=== PATIENT | female | born 1975 | race Caucasian/White ===

== ENCOUNTER → 2016-04-18 | Day surgery (SDC) | payer OTHER ==
[~2016-04-18] VITALS: Ht 175.3 cm; Wt 129.3 kg
[~2016-04-18] MED LIST: AMLODIPINE BESYL5 M1 PO; ATORVASTATIN CA20 M1 PO; CYMBALTA60 M1 PO; IBUPROFEN800 M1 PO; MELATONIN3 M4 PO; METOPROLOL TART25 M1 PO; PERCOCET 10-321 EACH PO; PERCOCET 5-3251 EACH PO; STOOL SOFTENER100 M2 PO; ULTRAM50 M1 PO
[2016-04-18 07:43] LABS: ABSOLUTE BASOPHIL COUNT 0.1 /CUMM (0.0-0.2); ABSOLUTE EOSINOPHIL COUNT 0.5 /CUMM (0.0-0.7); ABSOLUTE GRANULOCYTE CT 4.9 /CUMM (1.4-6.5); ABSOLUTE LYMPH COUNT 2.4 /CUMM (1.2-3.4); ABSOLUTE MONOCYTE COUNT 0.4 /CUMM (0.10-0.60); EOSINOPHIL % 5.6 % (0-5); GRANULOCYTE % 59.1 % (42.2-75.2); HEMATOCRIT 40.2 % (37-47); MEAN CORPUSCULAR HGB 27.9 PG (27.0-31.0); MEAN CORPUSCULAR HGB CONC 32.9 G/DL (33.0-37.0); MEAN CORPUSCULAR VOLUME 84.8 FL (81.0-99.0); MEAN PLATELET VOLUME 9.4 FL (7.4-10.4); PLATELET COUNT 252 /CUMM (130-400); RBC DISTRIBUTION WIDTH 14.1 % (11.5-14.5); RED BLOOD CELL CT 4.74 /CUMM (4.20-5.40); WHITE BLOOD CELL COUNT 8.2 /CUMM (4.8-10.8)
[2016-04-18 08:17] LABS: PT 11.2 SEC (9.4-12.5); PTT 33 SEC (25-37)
--- NOTE | 2016-04-18 11:13 | Operative Report ---
Operative/Inv Procedure Report Surgery Date: 04/18/16 Name of Procedure: Diagnostic laparoscopy peritoneal washings Pre-Operative Diagnosis: Pelvic pain fibroids Post-Operative Diagnosis: Same and endometriosis Estimated Blood Loss: less than 50ml Surgeon/Student Financial Aid Manager: KEVEN GORDON,EBONY Chavez Anesthesia: general endotracheal tube Operative/Procedure Note Note: Patient was taken the operating room placed supine position after adequate anesthesia patient placed in dorsolithotomy position vagina from dorsal fashion bladder was catheterized examination under anesthesia performed at this point a estrada speculum was placed into the vagina CO2 tenaculum placed on the Intralipid cervix gentle downward traction Munoz cannula was left in place. At this point on the surgeon regowned and gloved at the level the umbilicus stab incision was made to allow for the entry of Veress needle there was a negative drop test the abdomen was insufflated possibly 5 L of CO2 to liver edge dullness at which point the Veress needle was removed a 10 mm trocar was inserted atraumatically at the umbilicus the sheath remained placed through that sheath a laparoscope was placed under direct visualization a 5 mm trocar was placed 2 finger breadths of symptoms pubis in the midline through that a peanut was placed the patient was placed in Trendelenburg pictures were taken peritoneal on lining above the liver was noted to have endometriosis the ovaries were normal bilaterally the uterus is 16 weeks multiple fibroids peritoneal washings were obtained maximal CO2 was removed on patient tolerated this well on since removed from the abdomen the incision the umbilicus was oversewn using 0 for the fascia and 304 the skin incisions of both incisions Marcaine was injected underneath the skin at the end the case sterile dressings were applied the Munoz cannula was moved from the vagina or advancements removed from the vagina Del Rio was removed the patient was returned spine position she was awakened from anesthesia extubated and transported recovery room awake alert with counts correct
== END ==
LOC: STS 02:14
PROVIDERS: Specialist
DX: R10.2 Pelvic and perineal pain (principal); N80.9 Endometriosis, unspecified; D25.9 Leiomyoma of uterus, unspecified; I10 Essential (primary) hypertension; E78.5 Hyperlipidemia, unspecified
CPT/HCPCS: 36415; 81001; 88305; J0131

== ENCOUNTER 2016-05-23 04:29 | Inpatient (IN) | payer OTHER ==
[~2016-05-23] VITALS: Ht 175.3 cm; Wt 127.0 kg
[~2016-05-23 04:29] MED LIST changes: -IBUPROFEN800 M1 PO; -PERCOCET 5-3251 EACH PO
--- NOTE | 2016-05-23 08:53 | Operative Report ---
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 She was placed in the supine position on the operating table. A timeout was executed appropriately with the patient awake. Gel anesthesia was induced via an endotracheal tube. She was placed in the dorsal lithotomy position and prepped and draped in usual fashion for cystoscopy. The 22 Upper Sor[place] cystoscope sheath was placed into the bladder and urine collected for culture. Cystoscopy was performed and the bladder appeared essentially normal other than some mild inflammation of the bladder mucosa. The right and left ureteral orifices were normal in location and appearance. An open-ended catheter was advanced through the cystoscope into the left ureter up to the level of the left kidney. A similar catheter was advanced into the right ureter and up the level of the right kidney. Cystoscope was removed leaving both ureteral catheters in place. A Del Rio catheter was then placed in the ureteral stents fixed to the Del Rio catheter with tape and placed to separate drainage bags. The patient tolerated this portion of the procedure well and was to undergo hysterectomy by Dr. Weeks.
--- NOTE | 2016-05-23 11:33 | Operative Report ---
Operative/Inv Procedure Report Surgery Date: 05/23/16 Name of Procedure: Total abdominal hysterectomy bilateral salpingo-oophorectomy Pre-Operative Diagnosis: Pelvic pain Post-Operative Diagnosis: Same and adenomyosis of the uterus Estimated Blood Loss: 500 Surgeon/Ergonomics Engineer: KEVEN GORDON,EBONY Chavez and Dr. Marty Sawant Anesthesia: general endotracheal tube Operative/Procedure Note Note: Procedure note patient was taken the operating room placed prone position after adequate induction general anesthesia via endotracheal tube on patient was placed in dorsolithotomy Dr. Reno perform cystoscopy and placed stents he will dictate that part of the case at this point patient was returned spine position. The abdomen was prepped and draped so fashion 2 fingerbreadths of symptoms pubis skin was cut was carried down to rectus fascia which was cut in curvilinear fashion either direction using curved males the peritoneal cavity was entered high into the abdomen at this point Simon, was placed in usual fashion with lap pads with rings at this point the round ligament on the right was identified using [id number] and the round ligament on the left identified using and a [id number] of 0 the bladder flap was developed sharply and bluntly sequentially cervical branches uterine artery clamped and cut to level of the external os using 0 on the right infundibular pelvic artery was clamped on and the right ovary and tube were removed the on left endopelvic artery was clamped and the left ovary and tube were removed. Surgical cuff was oversewn running locking suture of interrupted [id number] hemostasis was apparent on the abdomen was area close amounts once until clear on the Marlen was applied to cervical cuff the lap pads were removed intact Simon O'Brando was removed intact peritoneum was reapproximated 0 the fascia was approximated with 2 continuous sutures of running lock of number 1 suture. Substance tissue was Bovie coagulated and skin was approximated david at the end the case counts correct urine was clear the stents removed intact the vagina was irrigated and found to be hemostatic patient was extubated and transferred recovery room awake and alert
[2016-05-23 13:28] VITALS: BP 120/80
[2016-05-23 13:31] VITALS: BP 120/80
[2016-05-23 15:18] VITALS: BP 120/80
--- NOTE | 2016-05-23 15:47 | NUR ---
LATE ENTRY: PATIENT CAME UP FROM THE PACU. AT THE BEDSIDE. PT A/OX3. C/O OF 12/22 ABD PAIN (SHARP IN NATURE). PER NATY WILSON GIVEN. PATIENT VERBALIZES COMFORT AT THIS TIME. ORIENTED TO CALL PATTEN, STAFF. GIVEN BIOLOGICAL SCIENCES PROFESSOR FORMS.
[2016-05-23 16:39] VITALS: BP 120/80
[2016-05-23 16:59] VITALS: BP 132/82
[2016-05-23 22:44] VITALS: BP 124/80
[2016-05-24 06:15] VITALS: BP 122/80
[2016-05-24 08:00] VITALS: BP 120/76
[2016-05-24 08:08] LABS: ABSOLUTE BASOPHIL COUNT 0 /CUMM (0.0-0.2); ABSOLUTE EOSINOPHIL COUNT 0 /CUMM (0.0-0.7); ABSOLUTE GRANULOCYTE CT 7.8 /CUMM (1.4-6.5); ABSOLUTE LYMPH COUNT 2.4 /CUMM (1.2-3.4); ABSOLUTE MONOCYTE COUNT 0.9 /CUMM (0.10-0.60); BASOPHIL % 0.3 % (0.0-2.0); EOSINOPHIL % 0 % (0-5); GRANULOCYTE % 70.3 % (42.2-75.2); HEMATOCRIT 37.5 % (37-47); MEAN CORPUSCULAR HGB 28.5 PG (27.0-31.0); MEAN CORPUSCULAR HGB CONC 33.1 G/DL (33.0-37.0); MEAN CORPUSCULAR VOLUME 85.9 FL (81.0-99.0); MEAN PLATELET VOLUME 10.5 FL (7.4-10.4); PLATELET COUNT 253 /CUMM (130-400); RBC DISTRIBUTION WIDTH 14.5 % (11.5-14.5); RED BLOOD CELL CT 4.37 /CUMM (4.20-5.40)
[2016-05-24 09:13] LABS: WHITE BLOOD CELL COUNT 11.2 /CUMM (4.8-10.8)
[2016-05-24 10:00] VITALS: BP 120/78; BP 130/76
--- NOTE | 2016-05-24 13:05 | PN- Post Delivery/GYN ---
Subjective Subjective: +FLATUS Objective Last 24 Hrs of Vital Signs/I&O Vital Signs Date Time Temp Pulse Resp B/P Pulse O2 O2 Flow FiO2 Ox Delivery Rate 05/24 1000 98.7 79 18 120/78 05/24 0800 98.2 82 18 120/76 05/24 0615 98.7 73 19 122/80 96 Nasal Cannula 05/24 0000 96 Nasal 2.0L Cannula 05/23 2244 98.3 82 18 124/80 96 Nasal Cannula 05/23 1659 98.1 75 18 132/82 95 Nasal 2.0L Cannula 05/23 1639 98.2 80 18 120/80 05/23 1518 98.2 80 18 120/80 95 05/23 1331 98.1 71 18 120/80 94 Nasal 2.0L Cannula 05/23 1328 98.1 71 20 120/80 05/23 1311 93 Nasal 2.0L Cannula Intake & Output 05/24 1600 05/24 0800 05/24 0000 Intake Total 1000 375 Output Total 800 1350 Balance 200 -975 Intake, IV 1000 375 Output, Urine 800 1350 Physical Exam: PLEASASNT WF IN NAD ABD SOFT NT INCISION CDI EXT -EDEMA -HOMANS Assessment/Plan Assessment/Plan ASSESS S/PTAH BSO PLAN OOB ADVANCE DIET
[2016-05-24 13:40] VITALS: BP 138/80
[2016-05-24 14:00] VITALS: BP 138/78
[2016-05-24 21:45] VITALS: BP 120/78
[2016-05-25 06:00] VITALS: BP 122/64
[2016-05-25 10:57] VITALS: BP 122/64
[2016-05-25] MEDS ORDERED: IBUPROFEN800 M1 PO (11:50)
[2016-05-25] MEDS ORDERED: PERCOCET 5-3251 EACH PO (12:19)
--- NOTE | 2016-06-20 11:36 | Surgical Discharge Summary ---
Visit Information Visit Dates Admission Date: 05/23/16 Discharge Date: 05/25/16 History of Present Illness Chief Complaint: 41-year-old 2 para 2002 assessments. 2 years ago patient underwent a cryoablation of heavy bleeding over the last 6 months patient has had severe pain prevents her from working requiring narcotics patient has had a laparoscopy that demonstrated a fibroid uterus on she's had options for the treatment is fibroid uterus i.e. 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 Home Who Do You Live With? Spouse What is Your Primary Language? Sinhala Review of Systems: Negative review of systems as stated in the [facility] Hospital Course Course Attending Physician: EBONY BACA MD Primary Care Physician: JOSUE LITTLE DO Hospital Course: Was admitted to undergo total abdominal hysterectomy bilateral salpingo- oophorectomy and she did well first postoperative day she tolerated a general diet on the second postoperative day she was discharged home with following physical exam she's a pleasant white female HEENT anicteric lungs clear heart S1 and S2 abdomen soft incision clean dry and intact 70s negative edema negative Homans Allergies: Coded Allergies: No Known Allergies (04/11/16) Disposition Summary Disposition Principal Diagnosis: Status post TATIANNA/BSO placement of stents Additional Diagnosis: Anemia Discharge Disposition: home or self care Discharge Instructions General Discharge Information Code Status: Full Code Patient's Diet: regular Patient's Activity: No driving for 2 weeks no heavy lifting for 2 weeks nothing in the vagina for 6 weeks Follow-Up Instructions/Appts: My office 1 week for removal of david Medications at Discharge Discharge Medications: Stop taking the following medications: Tramadol HCl (Ultram) 50 MG TABLET ORAL as needed for PAIN Oxycodone HCl/Acetaminophen (Percocet 10-325 MG Tablet) 10 MG-325 MG TABLET ORAL EVERY 4 HOURS NEEDED as needed for PAIN Continue taking these medications: Duloxetine HCl (Cymbalta) 60 MG CAPSULE.DR 1 Capsule ORAL Every night Comments: Last Taken: 05/25/16 Time: 10AM Amlodipine Besylate (Amlodipine Besylate) 5 MG TABLET 1 Tablet ORAL DAILY Comments: Last Taken: 05/25/16 Time: 10AM Atorvastatin Calcium (Atorvastatin Calcium) 20 MG TABLET 1 Tablet ORAL DAILY Comments: NOT GIVEN IN HOSPITAL Melatonin (Melatonin) 3 MG TABLET 1 Tablet ORAL Every night Comments: DOCUMENTED PER CMR DURING PRE-SX INTERVIEW Metoprolol Tartrate (Metoprolol Tartrate) 25 MG TABLET 1 Tablet ORAL TWICE DAILY as needed for PALPATATIONS Comments: NOT GIVEN IN HOSPITAL Docusate Sodium (Stool Softener) 100 MG TABLET 3 Tablet ORAL DAILY Comments: Last Taken: 05/25/16 Time: 10AM Start taking the following new medications: Ibuprofen (Ibuprofen) 800 MG TABLET 800 Milligram ORAL EVERY SIX HOURS NEEDED as needed for PAIN Qty = 60 No Refills Comments: NOT GIVEN IN HOSPITAL Oxycodone HCl/Acetaminophen (Percocet 5-325 MG Tablet) 5 MG-325 MG TABLET 1 Tablet ORAL EVERY 4 HOURS NEEDED as needed for PAIN Qty = 30 No Refills Comments: Last Taken: 05/25/16 Time: 11AM
== END 2016-05-25 13:14 | DRG 743 ==
LOC: ENRESERVDT → ENRESERVTM → ENPENDDIS 04:29 → SDA 04:29 → 2NA 12:35
PROVIDERS: ADMIT Specialist
PROC: 0UT90ZZ Resection of Uterus, Open Approach (ICD-10-PCS; principal; 2016-05-23)
PROC: 0UTC0ZZ Resection of Cervix, Open Approach (ICD-10-PCS; 2016-05-23)
PROC: 0UT70ZZ Resection of Bilateral Fallopian Tubes, Open Approach (ICD-10-PCS; 2016-05-23)
PROC: 0UT20ZZ Resection of Bilateral Ovaries, Open Approach (ICD-10-PCS; 2016-05-23)
PROC: 0T788DZ Dilation of Bilateral Ureters with Intraluminal Device, Via Natural or Artificial Opening Endoscopic (ICD-10-PCS; 2016-05-23)
DX: D25.9 Leiomyoma of uterus, unspecified (principal); N87.9 Dysplasia of cervix uteri, unspecified
CPT/HCPCS: 2NASP; 36415; 81025; 87086; 88307; J0131; J0694; J1100; J1170; J1650; J1885; J2405